=== PATIENT | male | born 1970 | race Native Hawaiian/Other Pacific Islander ===

== ENCOUNTER 2017-07-29 16:58 | Emergency (ER) | payer OTHER ==
[2017-07-29 16:58] VITALS: BMI 27.4
--- NOTE | 2017-07-29 17:33 | C.PDOC ---
History Of Present Illness 46M c/o abdominal pain and distention associated with nausea and soft stool that began 2 weeks ago. Denies fever, vomiting, recent travel, or allergies. Pt went to medical affairs specialist 5 days ago and has been taking flagyl and protonix with no relief. Time Seen by Provider: 07/29/17 17:31 Chief Complaint (Nursing): Abdominal Pain History Per: Patient History/Exam Limitations: no limitations Onset/Duration Of Symptoms: Days (14) Current Symptoms Are (Timing): Still Present Radiation Of Pain To:: None Quality Of Discomfort: "Pain" Associated Symptoms: Nausea, Loss Of Appetite. denies: Fever, Vomiting Exacerbating Factors: None Alleviating Factors: None Recent travel outside of the [place]: No Past Medical History Reviewed: Historical Data, Nursing Documentation, Vital Signs Vital Signs: Last Vital Signs Temp 98.6 F 07/29/17 22:06 Pulse 84 07/29/17 22:06 Resp 18 07/29/17 22:06 BP 117/75 07/29/17 22:06 Pulse Ox 95 07/29/17 22:06 - Medical History PMH: Hypothyroidism Surgical History: Tonsillectomy Family History: States: No Known Family Hx - Social History Hx Alcohol Use: No Hx Substance Use: No - Immunization History Hx Tetanus Toxoid Vaccination: No Hx Influenza Vaccination: No Hx Pneumococcal Vaccination: No Review Of Systems Constitutional: Negative for: Fever, Chills Cardiovascular: Negative for: Chest Pain, Palpitations Respiratory: Negative for: Cough Gastrointestinal: Positive for: Nausea, Abdominal Pain. Negative for: Vomiting Genitourinary: Negative for: Dysuria Neurological: Negative for: Weakness, Numbness Physical Exam - Physical Exam Appears: Well, Non-toxic, No Acute Distress Skin: Normal Color, Warm, Dry Head: Atraumatic, Normacephalic Eye(s): bilateral: Normal Inspection Oral Mucosa: Moist Neck: Supple Chest: Symmetrical, No Tenderness Cardiovascular: Rhythm Regular Respiratory: No Decreased Breath Sounds, No Accessory Muscle Use, No Rales, No Rhonchi, No Wheezing Gastrointestinal/Abdominal: Soft, Tenderness (Left sided), No Guarding, No Rebound Neurological/Psych: Oriented x3, Normal Speech, Normal Cognition, Other (no focal deficits) ED Course And Treatment - Laboratory Results Result Diagrams: 07/29/17 17:56 07/29/17 17:56 O2 Sat by Pulse Oximetry: 98 (RA) Pulse Ox Interpretation: Normal Medical Decision Making Medical Decision Making: Ordered CT abdomen & Pelvis, bloodwork and urinalysis. Administered IV fluids. Disposition - Disposition Disposition: HOME/ ROUTINE Disposition Time: 22:33 Condition: STABLE Forms: [facility] (Mongolian) - Clinical Impression Clinical Impression: Abdominal pain - Scribe Statement The provider has reviewed the documentation as recorded by the Scribe Elier Gallagher All medical record entries made by the [place] were at my direction and personally dictated by me. I have reviewed the chart and agree that the record accurately reflects my personal performance of the history, physical exam, medical decision making, and the department course for this patient. I have also personally directed, reviewed, and agree with the discharge instructions and disposition.
[2017-07-29] MEDS ORDERED: Sodium Chloride 0.9% 1,000 ML IV ONE (17:52)
[2017-07-29 17:59] LABS: BASO # 0.1 K/uL (0.0-0.2); BASO % 1.3 % (0.0-2.0); EOS # 0.1 K/uL (0.0-0.7); EOS % 1.3 % (0.0-4.0); HEMOGLOBIN 14.6 g/dL (12.0-18.0); LYMPH # 2.1 K/uL (1.0-4.3); LYMPH % 30.1 % (20.0-40.0); MEAN CELL VOLUME 86.6 fL (80.0-94.0); MEAN CORPUSCULAR HEMOGLOBIN 28.8 pg (27.0-31.0); MEAN CORPUSCULAR HGB CONC 33.3 g/dL (33.0-37.0); MEAN PLATELET VOLUME 6.7 fL (7.2-11.7); MONO # 0.7 K/uL (0.0-0.8); MONO % 9.8 % (0.0-10.0); NEUT # 3.9 K/uL (1.8-7.0); NEUT % 57.5 % (50.0-75.0); NRBC % 0.1 % (0.0-2.0); RBC 5.05 Mil/uL (4.40-5.90); RED CELL DISTRIBUTION WIDTH 14.3 % (11.5-14.5); WHITE BLOOD COUNT 6.8 K/uL (4.8-10.8)
[2017-07-29 18:06] LABS: URINE BILIRUBIN NEGATIVE (NEGATIVE); URINE BLOOD NEGATIVE (NEGATIVE); URINE CLARITY Clear (Clear); URINE COLOR Yellow (YELLOW); URINE GLUCOSE (UA) NORMAL (Normal); URINE NITRATE NEGATIVE (NEGATIVE); URINE PROTEIN NEGATIVE (NEGATIVE); URINE UROBILINOGEN NORMAL mg/dL (0.2-1.0)
[2017-07-29 18:10] LABS: ALB/GLOB RATIO 1.3 (1.0-2.1); ALBUMIN 4.2 g/dL (3.5-5.0); ALT/SGPT 76 U/L (21-72); AST/SGOT 42 U/L (17-59); BLOOD UREA NITROGEN 18 mg/dL (9-20); CALCIUM 8.6 mg/dl (8.6-10.4); GFR AFRICAN-AMERICAN > 60; GFR NON-AFRICAN AMERICAN > 60; LIPASE 115 U/L (23-300)
[2017-07-29 18:22] LABS: URINE LEUKOCYTE ESTERASE NEGATIVE Leu/uL (Negative)
[2017-07-29] MEDS ORDERED: Iodixanol 320 MG/ML 100 ML BOTTLE IV ONE (18:39)
--- NOTE | 2017-07-29 20:20 | CT ---
EXAM: CT Abdomen and Pelvis With Intravenous Contrast CLINICAL HISTORY: 46 years old, male; Pain; Abdominal pain; Generalized TECHNIQUE: Axial computed tomography images of the abdomen and pelvis with intravenous contrast. All CT scans at this facility use one or more dose reduction techniques, viz.: automated exposure control; ma/kV adjustment per patient size (including targeted exams where dose is matched to indication; i.e. head); or iterative reconstruction technique. Coronal and sagittal reformatted images were created and reviewed. CONTRAST: 100 mL of [id number] administered intravenously. COMPARISON: No relevant prior studies available. FINDINGS: Lower thorax: Minimal atelectasis/scarring. Small hiatal hernia. ABDOMEN: Liver: Fatty infiltration. Gallbladder and bile ducts: Calcified gallstone. No significant ductal dilation. Pancreas: No ductal dilation. No mass. Spleen: No splenomegaly. Adrenals: No mass. Kidneys and ureters: No mass. No hydronephrosis. Stomach and bowel: No definite mural thickening. No obstruction. Appendix: Mild distention of proximal appendix with stool. Distal tapering. No mucosal enhancement. PELVIS: Bladder: Unremarkable. Reproductive: Unremarkable as visualized. ABDOMEN and PELVIS: Intraperitoneal space: No significant fluid collection. No free air. Bones/joints: No acute fracture. Soft tissues: 6.5 x 1.8 x 1.8 centimeter fluid collection within subcutaneous tissues of right gluteal region, nonspecific but possibly sebaceous cyst. Clinical correlation is needed. Vasculature: Mild atherosclerotic disease of iliac arteries. No aneurysm. Lymph nodes: No pathologically enlarged lymph nodes. IMPRESSION: 1. Cholelithiasis. 2. Incidental/non-acute findings are described above.
[2017-07-29] MEDS ORDERED: Aluminum Hydroxide/Magnesium Hydroxide Susp (30 mL) PO STA (21:18)
[2017-07-29] MEDS ORDERED: Alum-Mag Hydrox-Simethicone Susp (30 mL) ONE (21:48)
[2017-07-29 22:06] VITALS: BP 117/75; PULSE 84; RESP 18; TEMP 98.6
[2017-07-29 22:34] VITALS: O2SAT 98
== END 2017-07-29 22:45 | disposition home or self-care (01) ==
LOC: C.ER 16:58
DX: R10.9 Unspecified abdominal pain (principal)
CPT/HCPCS: 74177; 80053; 81001; 83690; 85025; 96360; 99285; J7040; Q9967

== ENCOUNTER 2017-07-30 18:57 | Emergency (ER) | payer OTHER ==
[2017-07-30 18:57] VITALS: BMI 27.4
[2017-07-30 19:04] VITALS: RESP 20; O2SAT 100
[2017-07-30] MEDS ORDERED: Sodium Chloride 0.9% 1,000 ML IV ONE (19:21)
[2017-07-30] MEDS ORDERED: Simethicone 80 mg Chewtab PO STA (19:23)
[2017-07-30] MEDS ORDERED: Sodium Chloride 0.9% 1,000 ML ONE (20:05)
--- NOTE | 2017-07-30 20:10 | C.PDOC ---
History Of Present Illness 46-year-old male, presents to the emergency department with complaints of abdominal pain that feels like acidity and bloating. patient notes symptoms are associated with nausea that has been ongoing for the last three weeks. 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 Patient notes his stool is loose and yellow. Denies vomiting, fevers, hematuria, or any other associated symptoms. Patient seen in ED yesterday, had bloodwork, CT abd/pel that were unremarkable. Patient is scheduled for f/u appointment with GI specialist Dr Vela. Time Seen by Provider: 07/30/17 19:05 Chief Complaint (Nursing): Abdominal Pain History Per: Patient History/Exam Limitations: no limitations Onset/Duration Of Symptoms: Days Current Symptoms Are (Timing): Still Present Severity: Moderate Past Medical History Reviewed: Historical Data, Nursing Documentation, Vital Signs Vital Signs: Last Vital Signs Temp 98.3 F 07/30/17 19:04 Pulse 109 H 07/30/17 19:04 Resp 20 07/30/17 19:04 BP 129/78 07/30/17 19:04 Pulse Ox 100 07/30/17 20:12 - Medical History PMH: Hypothyroidism Surgical History: Tonsillectomy Family History: States: No Known Family Hx - Social History Hx Alcohol Use: No Hx Substance Use: No - Immunization History Hx Tetanus Toxoid Vaccination: No Hx Influenza Vaccination: No Hx Pneumococcal Vaccination: No Review Of Systems Except As Marked, All Systems Reviewed And Found Negative. Constitutional: Negative for: Fever, Chills Cardiovascular: Negative for: Chest Pain, Palpitations Respiratory: Negative for: Shortness of Breath Gastrointestinal: Positive for: Nausea, Abdominal Pain, Diarrhea. Negative for : Vomiting Musculoskeletal: Negative for: Back Pain Neurological: Negative for: Weakness, Numbness Physical Exam - Physical Exam Appears: Non-toxic, No Acute Distress, Other (mildly anxious) Skin: Warm, Dry, No Rash Head: Atraumatic, Normacephalic Eye(s): bilateral: Normal Inspection, PERRL Nose: Normal Oral Mucosa: Moist Lips: Normal Appearing Neck: Normal ROM Chest: Symmetrical Cardiovascular: Rhythm Regular, No Murmur Respiratory: Normal Breath Sounds, No Accessory Muscle Use Gastrointestinal/Abdominal: Soft, Tenderness (Mild LLQ), No Guarding, No Rebound Extremity: Normal ROM Neurological/Psych: Oriented x3, Normal Speech ED Course And Treatment - Laboratory Results Result Diagrams: 07/30/17 20:18 07/30/17 20:18 O2 Sat by Pulse Oximetry: 100 (on RA) Pulse Ox Interpretation: Normal Progress Note: Bloodwork, EKG and UA ordered and reviewed. Patient treated with Pepcid, IVFs and Bentyl. Disposition Counseled Patient/Family Regarding: Studies Performed, Diagnosis, Need For Followup, Rx Given - Disposition Referrals: Compa Vela MD [Staff Provider] - [facility] [Outside] Disposition: HOME/ ROUTINE Disposition Time: 21:30 Condition: STABLE Additional Instructions: FOLLOW UP WITH YOUR DOCTOR IN 1-2 DAYS, AND WITH GI WITHIN 1 WEEK USE MEDICATIONS NEEDED RETURN TO ER IF SYMPTOMS WORSEN Prescriptions: Famotidine [Pepcid] 20 mg PO BID PRN #30 tab PRN Reason: abdominal Simethicone [Mylicon Chew Tab] 80 mg PO Q6 #30 ctb Instructions: Abdominal Pain (ED) Forms: [facility] (Kyrgyz), General Discharge Instructions Print Language: SERBIAN - POA Present On Arrival: None - Clinical Impression Clinical Impression: Abdominal pain - Scribe Statement The provider has reviewed the documentation as recorded by the Scribe (Gina Villegas) All medical record entries made by the Scribe were at my direction and personally dictated by me. I have reviewed the chart and agree that the record accurately reflects my personal performance of the history, physical exam, medical decision making, and the department course for this patient. I have also personally directed, reviewed, and agree with the discharge instructions and disposition.
[2017-07-30 20:22] LABS: BASO % 0.6 % (0.0-2.0); EOS # 0.1 K/uL (0.0-0.7); EOS % 1.3 % (0.0-4.0); HEMOGLOBIN 14.7 g/dL (12.0-18.0); LYMPH # 2.2 K/uL (1.0-4.3); MEAN CELL VOLUME 86.3 fL (80.0-94.0); MEAN CORPUSCULAR HEMOGLOBIN 28.8 pg (27.0-31.0); MEAN CORPUSCULAR HGB CONC 33.4 g/dL (33.0-37.0); MEAN PLATELET VOLUME 6.9 fL (7.2-11.7); MONO # 0.7 K/uL (0.0-0.8); MONO % 9.8 % (0.0-10.0); NEUT # 3.8 K/uL (1.8-7.0); NEUT % 56.3 % (50.0-75.0); NRBC % 0.1 % (0.0-2.0); RBC 5.11 Mil/uL (4.40-5.90); RED CELL DISTRIBUTION WIDTH 14.1 % (11.5-14.5); WHITE BLOOD COUNT 6.8 K/uL (4.8-10.8)
[2017-07-30 20:25] LABS: URINE BILIRUBIN NEGATIVE (NEGATIVE); URINE BLOOD NEGATIVE (NEGATIVE); URINE CLARITY Clear (Clear); URINE COLOR Yellow (YELLOW); URINE GLUCOSE (UA) NORMAL (Normal); URINE NITRATE NEGATIVE (NEGATIVE); URINE PROTEIN NEGATIVE (NEGATIVE); URINE UROBILINOGEN NORMAL mg/dL (0.2-1.0)
[2017-07-30 20:28] LABS: URINE LEUKOCYTE ESTERASE NEGATIVE Leu/uL (Negative)
[2017-07-30 20:46] LABS: ALB/GLOB RATIO 1.2 (1.0-2.1); ALBUMIN 4.1 g/dL (3.5-5.0); ALT/SGPT 74 U/L (21-72); AST/SGOT 38 U/L (17-59); BLOOD UREA NITROGEN 15 mg/dL (9-20); CALCIUM 8.8 mg/dl (8.6-10.4); GFR AFRICAN-AMERICAN > 60; GFR NON-AFRICAN AMERICAN > 60; LIPASE 134 U/L (23-300)
[2017-07-30 21:55] VITALS: BP 130/75; PULSE 100; TEMP 98
== END 2017-07-30 21:55 | disposition home or self-care (01) ==
LOC: C.ER 18:57
DX: R10.32 Left lower quadrant pain (principal)
CPT/HCPCS: 80053; 81001; 83690; 84443; 85025; 96374; 99285; J7040

== ENCOUNTER 2017-08-10 07:06 | Day surgery (SDC) | payer OTHER ==
[2017-08-10] MEDS ORDERED: Propofol 10 mg/ml Inj (20 ML) ONE ×2 (09:00→09:18)
[2017-08-10] MEDS ORDERED: Lactated Ringer's 1,000 ML IV ONE (09:02)
[2017-08-10 09:08] VITALS: O2SAT 100
[2017-08-10 09:54] VITALS: TEMP 98.2
[2017-08-10 10:24] VITALS: BP 106/71; PULSE 65; RESP 17
== END 2017-08-10 10:45 | disposition home or self-care (01) ==
LOC: C.ENDO 07:06
PROVIDERS: ATTEND Internal Medicine Gastroenterology
DX: R19.4 Change in bowel habit (principal); R10.12 Left upper quadrant pain; K44.9 Diaphragmatic hernia without obstruction or gangrene; K29.70 Gastritis, unspecified, without bleeding; K29.80 Duodenitis without bleeding; K63.5 Polyp of colon; K64.1 Second degree hemorrhoids
CPT/HCPCS: 43239; 45380; 45385; 88305; J2704; J3010; J7120

== ENCOUNTER 2018-07-26 16:35 | Emergency (ER) | payer OTHER ==
[2018-07-26 16:35] VITALS: BMI 27.4
[2018-07-26 16:44] VITALS: BP 120/80; PULSE 81; RESP 16; TEMP 97.8; O2SAT 98
--- NOTE | 2018-07-26 17:40 | C.PDOC ---
History Of Present Illness 47 y/o male with PMH of needle stick in 2012 presents to ED s/p needle stick during rapid response just [employer] PROFESS[employer]. 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 Pt refused HIV post-exposure prophylaxis after his last needle stick, states that he will most likely refuse it today as well. HIV and hepatitis of the rapid response patient is unknown. Denies needle sticks elsewhere, numbness, paresthesias, or any other associated complaints Time Seen by Provider: 07/26/18 16:45 Chief Complaint (Nursing): Needle Stick Past Medical History Vital Signs: Last Vital Signs Temp 97.8 F 07/26/18 16:42 Pulse 81 07/26/18 16:42 Resp 16 07/26/18 16:42 BP 120/80 07/26/18 16:42 Pulse Ox 98 07/26/18 16:42 - Medical History PMH: Hypothyroidism Denies: Colonic Polyps, Fractures, Seizures, Sleep Apnea, TIA Surgical History: Tonsillectomy (2012) Family History: States: No Known Family Hx - Social History Hx Alcohol Use: No Hx Substance Use: No - Immunization History Hx Tetanus Toxoid Vaccination: No Hx Influenza Vaccination: No Hx Pneumococcal Vaccination: No Physical Exam - Physical Exam Appears: Well, No Acute Distress Skin: Normal Color, Warm, Dry Head: Atraumatic, Normacephalic, No Tenderness Eye(s): bilateral: Normal Inspection, PERRL, EOMI Nose: Normal Oral Mucosa: Moist Throat: Normal Neck: Normal Cardiovascular: Rhythm Regular Respiratory: Normal Breath Sounds Gastrointestinal/Abdominal: Soft, No Tenderness Extremity: Normal ROM, Capillary Refill (<2s), Other (needle puncture left lateral dorsal hand) Extremity: Bilateral: Normal Color And Temperature, Normal ROM Pulses: Left Radial: Normal, Right Radial: Normal Neurological/Psych: Oriented x3, Normal Speech, Normal Cognition, Normal Motor, Normal Sensation Gait: Steady ED Course And Treatment - Laboratory Results Result Diagrams: 07/26/18 18:13 07/26/18 18:13 O2 Sat by Pulse Oximetry: 98 Medical Decision Making Medical Decision Making: Initial Plan: * Hepatitis Panel * HIV * RPR * CBC, CMP * UA * Tetanus Spoke with regarding admitted patient from rapid response. States he will order hepatitis panel and HIV to determine status. Original rapid response pt has negative hepatitis and hiv panel Patient refusing post-exposure HIV prophylaxis at this time. Hepatitis C reactive. LFTs unremarkable. Pt notified of result. Has no known h/o hepatitis. Spoke with PMD Dr. Farias, who states patient can followup outpatient for further evaluation of reactive hepatitis C, potential hep B vaccine, and repeat b loodwork. Diagnostic testing results and plan of care discussed with patient. Strict instructions given regarding prescription use, importance of followup, and signs/symptoms to return to ER including fever, chills, abdominal pain, or any other new/worsening symptoms. Pt verbalized understanding of discussion. Patient is A&Ox3, ambulating with steady gait, with vital signs stable for discharge. Disposition - Disposition Disposition: HOME/ ROUTINE Disposition Time: 18:13 Condition: GOOD Additional Instructions: Followup with Dr. Umaña within 2 days Followup with occupational health Return to ER with any new/worsening symptoms Forms: [facility] (Persian) - Clinical Impression Clinical Impression: Needle stick injury
[2018-07-26 18:09] LABS: URINE BILIRUBIN NEGATIVE (NEGATIVE); URINE BLOOD NEGATIVE (NEGATIVE); URINE CLARITY Clear (Clear); URINE COLOR Yellow (YELLOW); URINE GLUCOSE (UA) NORMAL (Normal); URINE LEUKOCYTE ESTERASE NEG Leu/uL (Negative); URINE PROTEIN NEGATIVE (NEGATIVE)
[2018-07-26 18:17] LABS: BASO % 0.9 % (0.0-2.0); EOS # 0.1 K/uL (0.0-0.7); EOS % 2.4 % (0.0-4.0); HEMOGLOBIN 15.2 g/dL (12.0-18.0); LYMPH # 1.3 K/uL (1.0-4.3); LYMPH % 29.3 % (20.0-40.0); MEAN CELL VOLUME 87.7 fL (80.0-94.0); MEAN CORPUSCULAR HEMOGLOBIN 29.4 pg (27.0-31.0); MEAN CORPUSCULAR HGB CONC 33.5 g/dL (33.0-37.0); MEAN PLATELET VOLUME 6.8 fL (7.2-11.7); MONO # 0.4 K/uL (0.0-0.8); NEUT # 2.7 K/uL (1.8-7.0); NEUT % 59.4 % (50.0-75.0); RBC 5.19 Mil/uL (4.40-5.90); RED CELL DISTRIBUTION WIDTH 14.6 % (11.5-14.5); WHITE BLOOD COUNT 4.6 K/uL (4.8-10.8)
[2018-07-26 18:29] LABS: ALB/GLOB RATIO 1.4 (1.0-2.1); ALBUMIN 4.7 g/dL (3.5-5.0); ALT/SGPT 34 U/L (21-72); AMYLASE 112 U/L (30-110); AST/SGOT 26 U/L (17-59); BLOOD UREA NITROGEN 16 mg/dL (9-20); CALCIUM 9.4 mg/dl (8.6-10.4); GFR NON-AFRICAN AMERICAN > 60
[2018-07-26] MEDS ORDERED: Bacitracin 500 Units/gm Oint Foilpak UD ONE (18:48)
[2018-07-26] MEDS ORDERED: Tetanus/Diphtheria Toxoids 0.5 ml Syringe IM ONE (18:51)
[2018-07-26] MEDS: Tetanus/Diphtheria Toxoids 0.5 ml Syringe IM ONE (18:52)
[2018-07-26 19:01] LABS: HEPATITIS B SURFACE AG Negative (NEGATIVE)
[2018-07-26 19:06] LABS: HEPATITIS A IGM NEGATIVE (NEGATIVE); HEPATITIS B CORE AB NEGATIVE (NEGATIVE)
[2018-07-26 20:21] LABS: HEPATITIS C ANTIBODY REACTIVE (NEGATIVE)
[2018-07-26] MEDS: Emtricitabine-Tenofovir 200 mg-300 mg Tab PO STA (20:39)
== END 2018-07-26 20:39 | disposition home or self-care (01) ==
LOC: C.ER 16:35
DX: Z77.21 Contact with and (suspected) exposure to potentially hazardous body fluids (principal); W46.0XXA Contact with hypodermic needle, initial encounter; Y99.0 Civilian activity done for income or pay; E03.9 Hypothyroidism, unspecified; Z23 Encounter for immunization

== ENCOUNTER 2018-08-14 14:26 | Outpatient (CLI) | payer OTHER | END 2018-08-14 14:27 | disposition home or self-care (01) | LOC: C.LAB 14:26 | DX: R10.12 Left upper quadrant pain (principal); K55.059 Acute (reversible) ischemia of intestine, part and extent unspecified; B19.20 Unspecified viral hepatitis C without hepatic coma; K80.20 Calculus of gallbladder without cholecystitis without obstruction; K44.9 Diaphragmatic hernia without obstruction or gangrene ==

== ENCOUNTER 2018-08-24 16:13 | Outpatient (CLI) | payer OTHER | END 2018-08-24 16:14 | disposition home or self-care (01) | LOC: C.LAB 16:13 | DX: K55.059 Acute (reversible) ischemia of intestine, part and extent unspecified (principal) ==

== ENCOUNTER 2018-08-27 16:52 | Outpatient (CLI) | payer OTHER | END 2018-08-27 16:53 | disposition home or self-care (01) | LOC: C.CTH 16:52 | DX: R10.9 Unspecified abdominal pain (principal) ==